=== PATIENT | male | born 1960 | race Asian ===

== ENCOUNTER 2019-06-01 07:48 | Emergency (ER) | payer BC ==
[~2019-06-01] VITALS: Ht 177.8 cm; Wt 76.2 kg
[~2019-06-01 07:48] MED LIST: ASPIRIN325 MG PO; CENTRUM1 TAB PO; COQ10 IN OIL1 SGL PO; LIPI10 PO; LOSARTAN POTASS25 M1 PO
[2019-06-01 07:58] VITALS: Ht 177.8 cm; Wt 76.2 kg
[2019-06-01 09:25] LABS: CALCIUM 9.1 mg/dL (8.5-10.1); CARBON DIOXIDE 29.4 mmol/L (21-32); CHLORIDE SERUM 105 mmol/L (98-107); GFR1 > 60 mL/min; GLUCOSE SERUM 105 mg/dL (74-106); SODIUM SERUM 142 mmol/L (136-145)
[2019-06-01 09:38] LABS: ALBUMIN 3.7 g/dL (3.4-5.0); ALKALINE PHOSPHATASE 62 U/L (46-116); ALT/SGPT 41 U/L (16-63); AST/SGOT 26 U/L (15-37); BILIRUBIN TOTAL 1.16 mg/dL (0.20-1.00); LIPASE 83 IU/L (73-393); T4(THYROXINE) 7.7 ug/dL (4.7-13.3); TOTAL PROTEIN, SERUM 7.5 g/dL (6.4-8.2)
[2019-06-01 10:03] LABS: microscopic required? NO
[2019-06-01 10:11] LABS: urine erythrocyte NEGATIVE (NEGATIVE)
[2019-06-01 10:21] LABS: BASOPHIL % 0.9 % (0-2); PLATELET COUNT 247 x10^3mcL (130-400); RED CELL DISTRIBUTION WIDTH 12.9 % (11.5-14.5)
[2019-06-01 12:41] VITALS: BP 116/77
== END 2019-06-01 12:41 | disposition home or self-care (01) ==
LOC: ED 07:48
PROVIDERS: Emergency Medicine
DX: J98.01 Acute bronchospasm (principal); Z98.890 Other specified postprocedural states; Z86.73 Personal history of transient ischemic attack (TIA), and cerebral infarction without residual deficits
CPT/HCPCS: 82962; 83880; G0480; J2930; J7030; J7040; J7613; J7644